=== PATIENT | male | born 1980 | race Caucasian/White ===

== ENCOUNTER 2017-01-31 02:44 | Emergency (ER) | payer MEDICAID ==
[2017-01-31] MEDS ORDERED: NORMAL SALINE 1000 ML 1,000 ML IV ONE (05:32)
[2017-01-31] MEDS ORDERED: ONDANSETRON HCL INJ/PF 4 MG/2 ML SDV IV ONE (05:32)
[2017-01-31] MEDS ORDERED: MECLIZINE HCL 25 MG TABLET PO ONE (05:33)
--- NOTE | 2017-01-31 05:35 | ER Document Report ---
ED Dizziness/Weakness - General Chief Complaint: Dizziness Stated Complaint: VOMMITING Time Seen by Provider: 01/31/17 05:19 Mode of Arrival: Medic Information source: Patient Notes: Patient states he was playing video games with his when around midnight he developed a dizzy sensation that he describes as the room spinning. Patient states that he did become nauseous and vomited. All the abdominal tenderness after the vomiting that seems to be better at this time. Patient denies any headache symptoms. Patient states that he does have a possible history of anxiety. TRAVEL OUTSIDE OF THE [place] IN LAST 30 DAYS: No - HPI Patient complains to provider of: Vertigo Onset: This evening Onset/Duration: Sudden Pain Level: Denies Associated symptoms: Vertigo, Vomiting. denies: Diarrhea, Headache Baseline gait: Walks w/o assistance - Related Data Allergies/Adverse Reactions: amoxicillin [From Augmentin] Allergy (Verified 01/31/17 02:57) clavulanic acid [From Augmentin] Allergy (Verified 01/31/17 02:57) Past Medical History - General Information source: Patient - Social History Smoking Status: Former Smoker Chew tobacco use (# tins/day): No Frequency of alcohol use: None Drug Abuse: None Occupation: Self-employed Lives with: Spouse/Significant other Family History: Reviewed & Not Pertinent Patient has suicidal ideation: No Patient has homicidal ideation: No Renal/ Medical History: Denies: Hx Peritoneal Dialysis Psychiatric Medical History: Reports: Hx Anxiety Past Surgical History: Reports: Hx Herniorrhaphy, Hx Orthopedic Surgery Review of Systems - Review of Systems Constitutional: No symptoms reported EENT: Nose congestion. denies: Ear pain Cardiovascular: Dizziness. denies: Chest pain Respiratory: No symptoms reported. denies: Cough, Short of breath Gastrointestinal: Abdominal pain - Initially, now gone, Vomiting Genitourinary: No symptoms reported Male Genitourinary: No symptoms reported Musculoskeletal: No symptoms reported Skin: No symptoms reported Hematologic/Lymphatic: No symptoms reported Neurological/Psychological: No symptoms reported. denies: Lost consciousness, Headaches Physical Exam - Vital signs Vitals: Temp Pulse Resp BP Pulse Ox 97.4 F 79 20 116/89 H 97 01/31/17 02:56 01/31/17 02:56 01/31/17 02:56 01/31/17 02:56 01/31/17 02:56 - General General appearance: Appears well, Alert In distress: None - HEENT Head: Normocephalic, Atraumatic Eyes: Normal Conjunctiva: Normal Extraocular movements intact: Yes Eyelashes: Normal Pupils: PERRL Ears: Normal External canal: Normal Tympanic membrane: Normal Nasal: Clear rhinorrhea Mouth/Lips: Normal Mucous membranes: Normal Pharynx: Normal Neck: Normal, Supple. No: Lymphadenopathy - Respiratory Respiratory status: No respiratory distress Chest status: Nontender Breath sounds: Normal. No: Rales, Rhonchi, Stridor, Wheezing Chest palpation: Normal - Cardiovascular Rhythm: Regular Heart sounds: S1 appreciated, S2 appreciated Murmur: No - Abdominal Inspection: Normal Distension: No distension Bowel sounds: Normal Tenderness: Nontender Organomegaly: No organomegaly - Back Back: Normal, Nontender. No: CVA tenderness - Extremities General upper extremity: Normal inspection, Normal ROM General lower extremity: Normal inspection, Normal ROM - Neurological Neuro grossly intact: Yes Cognition: Normal [place] Coma Scale Eye Opening: Spontaneous Hemal Coma Scale Verbal: Oriented Hemal Coma Scale Motor: Obeys Commands Hemal Coma Scale Total: 15 - Psychological Associated symptoms: Normal affect, Normal mood - Skin Skin Temperature: Warm Skin Moisture: Dry Skin Color: Normal Course - Re-evaluation Re-evalutation: 01/31/17 07:14 Patient reports that sensation of movement has resolved. Patient denies any nausea at this time. Patient with symptoms consistent with vertigo. Discussed worsening symptoms that patient should return medially for. Patient verbalized understanding and agrees with plan of care. - Vital Signs Vital signs: Temp Pulse Resp BP Pulse Ox 97.4 F 79 18 136/118 H 99 01/31/17 02:56 01/31/17 02:56 01/31/17 06:01 01/31/17 06:31 01/31/17 06:31 - Laboratory Result Diagrams: 01/31/17 05:57 01/31/17 05:57 Laboratory results interpreted by me: Labs- Entire Visit 01/31/17 01/31/17 01/31/17 05:49 05:49 05:57 WBC 7.8 RBC 4.93 Hgb 14.4 Hct 42.9 MCV 87 MCH 29.3 MCHC 33.6 RDW 13.6 Plt Count 237 Seg Neutrophils % 76.1 Lymphocytes % 16.4 Monocytes % 6.7 Eosinophils % 0.6 Basophils % 0.2 Absolute Neutrophils 6.0 Absolute Lymphocytes 1.3 Absolute Monocytes 0.5 Absolute Eosinophils 0.0 Absolute Basophils 0.0 Sodium Potassium Chloride Carbon Dioxide Anion Gap BUN Creatinine Est GFR ( Amer) Est GFR (Non-Af Amer) Glucose Calcium Total Bilirubin Direct Bilirubin Indirect Bilirubin Neonat Total Bilirubin AST ALT Alkaline Phosphatase Total Protein Albumin Urine Color YELLOW Urine Appearance CLEAR Urine pH 6.0 Ur Specific [place] 1.021 Urine Protein NEGATIVE Urine Glucose (UA) NEGATIVE Urine Ketones NEGATIVE Urine Blood NEGATIVE Urine Nitrite NEGATIVE Urine Bilirubin NEGATIVE Urine Urobilinogen NEGATIVE Ur Leukocyte Esterase NEGATIVE Urine WBC (Auto) 1 Urine Mucus (Auto) RARE Urine Ascorbic Acid NEGATIVE Urine Opiates Screen NEGATIVE Urine Methadone Screen NEGATIVE Ur Barbiturates Screen NEGATIVE Ur Phencyclidine Scrn NEGATIVE Ur Amphetamines Screen NEGATIVE U Benzodiazepines Scrn NEGATIVE Urine Cocaine Screen NEGATIVE U Marijuana (THC) Screen NEGATIVE 01/31/17 05:57 WBC RBC Hgb Hct MCV MCH MCHC RDW Plt Count Seg Neutrophils % Lymphocytes % Monocytes % Eosinophils % Basophils % Absolute Neutrophils Absolute Lymphocytes Absolute Monocytes Absolute Eosinophils Absolute Basophils Sodium 141.8 Potassium 4.6 Chloride 103 Carbon Dioxide 30 Anion Gap 9 BUN 13 Creatinine 0.79 Est GFR ( Amer) > 60 Est GFR (Non-Af Amer) > 60 Glucose 107 Calcium 9.5 Total Bilirubin 0.5 Direct Bilirubin 0.3 Indirect Bilirubin Not Reportable Neonat Total Bilirubin Not Reportable AST 26 ALT 52 Alkaline Phosphatase 71 Total Protein 6.7 Albumin 4.2 Urine Color Urine Appearance Urine pH Ur Specific [place] Urine Protein Urine Glucose (UA) Urine Ketones Urine Blood Urine Nitrite Urine Bilirubin Urine Urobilinogen Ur Leukocyte Esterase Urine WBC (Auto) Urine Mucus (Auto) Urine Ascorbic Acid Urine Opiates Screen Urine Methadone Screen Ur Barbiturates Screen Ur Phencyclidine Scrn Ur Amphetamines Screen U Benzodiazepines Scrn Urine Cocaine Screen U Marijuana (THC) Screen - EKG Interpretation by Mt EKG shows normal: Sinus rhythm Rate: Normal Discharge - Discharge Clinical Impression: Vertigo Nausea & vomiting Qualifiers: Vomiting type: unspecified Vomiting Intractability: unspecified Qualified Code( s): R11.2 - Nausea with vomiting, unspecified Condition: Stable Disposition: HOME, SELF-CARE Instructions: Intravenous (IV) Fluids ([facility]), Vertigo ([facility]), Meclizine ([facility]), Antinausea Medication ([facility]) Additional Instructions: Return immediately for any new or worsening symptoms Followup with your primary care provider, call tomorrow to make a followup appointment Prescriptions: Meclizine HCl [Antivert 25 mg Tablet] 25 mg PO ASDIR PRN #20 tablet PRN Reason: Ondansetron HCl [Zofran 4 mg Tablet] 1 - 2 tab PO Q6 PRN #15 tablet PRN Reason: Referrals: [facility] [Provider Group] - Follow up tomorrow
[2017-01-31 06:10] LABS: APPEARANCE,URINE CLEAR; BILIRUBIN,URINE NEGATIVE (NEGATIVE); GLUCOSE, URINE NEGATIVE (NEGATIVE); KETONES,URINE NEGATIVE (NEGATIVE); LEUKOCYTE ESTERASE,URINE NEGATIVE (NEGATIVE); NITRITE,URINE NEGATIVE (NEGATIVE); PROTEIN,URINE NEGATIVE (NEGATIVE); URINE SPECIFIC GRAVITY 1.021; UROBILINOGEN,URINE NEGATIVE mg/dL (<2.0)
[2017-01-31 06:14] LABS: ABSOLUTE LYMPHOCYTES (AUTO) 1.3 10^3/uL (0.5-4.7); ABSOLUTE MONOCYTES (AUTO) 0.5 10^3/uL (0.1-1.4); BASOPHILS % (AUTO) 0.2 % (0-2); EOSINOPHILS % (AUTO) 0.6 % (0-6); HEMATOCRIT 42.9 % (37.9-51.0); HEMOGLOBIN 14.4 g/dL (13.5-17.0); HGB HCT DIFFERENCE 0.3; LYMPHOCYTES % (AUTO) 16.4 % (13-45); MEAN CORPUSCULAR HEMOGLOBIN 29.3 pg (27.0-33.4); MEAN CORPUSCULAR HGB CONC 33.6 g/dL (32.0-36.0); MEAN CORPUSCULAR VOLUME 87 fl (80-97); MONOCYTES % (AUTO) 6.7 % (3-13); RED BLOOD COUNT 4.93 10^6/uL (4.35-5.55); RED CELL DISTRIBUTION WIDTH 13.6 % (11.5-14.0); SEGMENTED NEUTROPHILS % (AUTO) 76.1 % (42-78); WHITE BLOOD COUNT 7.8 10^3/uL (4.0-10.5)
[2017-01-31 06:23] LABS: URINE BARBITURATES SCREEN NEGATIVE; URINE METHADONE SCREEN NEGATIVE; URINE OPIATES LOW NEGATIVE; URINE PHENCYCLIDINE SCREEN NEGATIVE
[2017-01-31 06:28] LABS: ALANINE AMINOTRANSFERASE 52 U/L (21-72); ALBUMIN 4.2 g/dL (3.5-5.0); ALKALINE PHOSPHATASE 71 U/L (38-126); ANION GAP 9 (5-19); ASPARTATE AMINO TRANSFERASE 26 U/L (17-59); BILIRUBIN,DIRECT 0.3 mg/dL (0.0-0.4); BILIRUBIN,TOTAL 0.5 mg/dL (0.2-1.3); BLOOD UREA NITROGEN 13 mg/dL (7-20); CALCIUM 9.5 mg/dL (8.4-10.2); CARBON DIOXIDE 30 mmol/L (22-30); CHLORIDE 103 mmol/L (98-107); CREATININE RESULT 0.79 mg/dL (0.52-1.25); GLUCOSE 107 mg/dL (75-110); POTASSIUM 4.6 mmol/L (3.6-5.0); SODIUM 141.8 mmol/L (137-145); TOTAL PROTEIN 6.7 g/dL (6.3-8.2)
[2017-01-31 08:35] VITALS: BP 123/76
--- NOTE | 2017-01-31 15:21 | EKG REPORT ---
SEVERITY:- NORMAL ECG - SINUS RHYTHM : Confirmed by: Martine Jaramillo 31-Jan-2017 15:19:50
== END 2017-01-31 08:19 | disposition home or self-care (01) ==
LOC: ER 02:44
DX: R42 Dizziness and giddiness (principal); R11.2 Nausea with vomiting, unspecified; Z88.0 Allergy status to penicillin
CPT/HCPCS: 93005; 99284; 96361; 96374; 36415; 85025; 80053; 81001; 80307; 93010; J2405; J7030

== ENCOUNTER 2017-10-26 17:59 | Emergency (ER) | payer MEDICAID ==
[2017-10-26 18:06] VITALS: BP 128/92
--- NOTE | 2017-10-26 18:55 | ER Document Report ---
HPI - HPI Patient complains to provider of: cat scratches Onset: Yesterday - 6 PM Onset/Duration: Sudden Pain Level: 4 Context: 37-year-old male was trying to mixing picker tender a stray cat by the nape of the neck twice yesterday evening to get the cat captured by [facility]. The animal finally ran off in the [place] and he has not contacted [facility] but the mounted police that was at the house did call animal [employer]. I will have him complete an animal bite form and I have talked to him about what procedure should be done Associated Symptoms: None Exacerbated by: Denies Relieved by: Denies Similar symptoms previously: No Recently seen / treated by doctor: No - ROS ROS below otherwise negative: Yes Systems Reviewed and Negative: Yes All other systems reviewed and negative Past Medical History - General Information source: Patient - Social History Smoking Status: Current Every Day Smoker Frequency of alcohol use: None Drug Abuse: None Lives with: Family Family History: Reviewed & Not Pertinent Renal/ Medical History: Denies: Hx Peritoneal Dialysis Psychiatric Medical History: Reports: Hx Anxiety Past Surgical History: Reports: Hx Herniorrhaphy, Hx Orthopedic Surgery Vertical Provider Document - CONSTITUTIONAL Agree With Documented VS: Yes - INFECTION CONTROL TRAVEL OUTSIDE OF THE [place] IN LAST 30 DAYS: No - NECK Neck: Supple - RESPIRATORY Respiratory: Breath Sounds Normal - MUSCULOSKELETAL/EXTREMETIES Musculoskeletal/Extremeties: CRICKET HERRERA. negative: Tender - DERM Notes: Superficial scratches to the right posterior calf, no inflammation, crusting, or bleeding. Superficial scratch to the right distal volar forearm without bleeding or crusting, no inflammation. Tendinitis or adenopathy of the leg or the arm. Course - Re-evaluation Re-evalutation: 10/26/17 19:04 I have instructed the patient to contact [facility] that they have 10 days to find the cat. If they are not unable to find the cat he needs to return to the emergency room for rabies vaccinations. I explained to him that this is low risk for any rabies as confirmed by my consulting physician at this time 10/26/17 19:06 - Vital Signs Vital signs: Temp Pulse Resp BP Pulse Ox 98.2 F 75 16 128/92 H 100 10/26/17 18:05 10/26/17 18:05 10/26/17 18:05 10/26/17 18:05 10/26/17 18:05 Discharge - Discharge Clinical Impression: Cat scratch Condition: Good Disposition: HOME, SELF-CARE Instructions: Abrasions ([facility]) Additional Instructions: You are to keep in contact with animal control. Animal control will try to capture the animal You have 10 days to find the cat and see if the cat gets sick. Your cat scratches are not infected return to ER if cat is NOT FOUND within the 10 days
[2017-10-26] MEDS ORDERED: DIPH/PERTUSS(ACELL)/TETANUS VAC/PF 0.5 ML SYR (>=10YO) IM ONE (19:07)
== END 2017-10-26 19:37 | disposition home or self-care (01) ==
LOC: ER 17:59
DX: S80.811A Abrasion, right lower leg, initial encounter (principal); W55.03XA Scratched by cat, initial encounter; Y92.009 Unspecified place in unspecified non-institutional (private) residence as the place of occurrence of the external cause; Z23 Encounter for immunization; F17.200 Nicotine dependence, unspecified, uncomplicated
CPT/HCPCS: 90471; 90715; 99283

== ENCOUNTER 2018-04-11 17:31 | Emergency (ER) | payer MEDICAID ==
--- NOTE | 2018-04-11 19:05 | ER Document Report ---
ED Medical Screen (RME) - General Chief Complaint: Laceration Stated Complaint: FINGER LACERATION Time Seen by Provider: 04/11/18 19:04 Notes: Left middle finger laceration TRAVEL OUTSIDE OF THE [place] IN LAST 30 DAYS: No - Related Data Allergies/Adverse Reactions: amoxicillin [From Augmentin] Allergy (Verified 04/11/18 17:38) clavulanic acid [From Augmentin] Allergy (Verified 04/11/18 17:38) Past Medical History - Social History Chew tobacco use (# tins/day): No Frequency of alcohol use: Social Drug Abuse: None Renal/ Medical History: Denies: Hx Peritoneal Dialysis Psychiatric Medical History: Reports: Hx Anxiety Past Surgical History: Reports: Hx Abdominal Surgery - hernia repair, Hx Herniorrhaphy, Hx Orthopedic Surgery Physical Exam - Vital signs Vitals: Temp Pulse Resp BP Pulse Ox 98.5 F 92 14 121/79 98 04/11/18 18:24 04/11/18 18:24 04/11/18 18:24 04/11/18 18:24 04/11/18 18:24 Course - Vital Signs Vital signs: Temp Pulse Resp BP Pulse Ox 98.5 F 92 14 121/79 98 04/11/18 18:24 04/11/18 18:24 04/11/18 18:24 04/11/18 18:24 04/11/18 18:24
[2018-04-11] MEDS ORDERED: LIDOCAINE 4%/TETRACAINE 0.5%/EPI 0.18% 5 ML TOPICAL SOLN TOP ONE (19:17)
[2018-04-11] MEDS ORDERED: LIDOCAINE 1% INJ-PF (10 MG/ML) 30 ML SDV INJ ONE (19:17)
--- NOTE | 2018-04-11 19:25 | ER Document Report ---
ED Wound - General TRAVEL OUTSIDE OF THE [place] IN LAST 30 DAYS: No - General Chief Complaint: Laceration Stated Complaint: FINGER LACERATION Time Seen by Provider: 04/11/18 19:04 Notes: Patient is a 37-year-old male that comes to the emergency department for chief complaint of laceration to the top of his left index finger with a saw accidentally just prior to arrival. He reports heavy bleeding. He came by EMS. He denies any other injuries. His tetanus is up-to-date within 3 months. He denies blood thinner, he denies history of diabetes. ([place]) - Related Data Allergies/Adverse Reactions: amoxicillin [From Augmentin] Allergy (Verified 04/11/18 17:38) clavulanic acid [From Augmentin] Allergy (Verified 04/11/18 17:38) Past Medical History - General Information source: Patient - Social History Smoking Status: Never Smoker Chew tobacco use (# tins/day): No Frequency of alcohol use: Social Drug Abuse: None Lives with: Family Family History: Reviewed & Not Pertinent Patient has suicidal ideation: No Patient has homicidal ideation: No Renal/ Medical History: Denies: Hx Peritoneal Dialysis Psychiatric Medical History: Reports: Hx Anxiety Past Surgical History: Reports: Hx Abdominal Surgery - hernia repair, Hx Herniorrhaphy, Hx Orthopedic Surgery - Immunizations Immunizations up to date: Yes Hx Diphtheria, Pertussis, Tetanus Vaccination: Yes Review of Systems - Review of Systems Constitutional: No symptoms reported EENT: No symptoms reported Cardiovascular: No symptoms reported Respiratory: No symptoms reported Gastrointestinal: No symptoms reported Genitourinary: No symptoms reported Male Genitourinary: No symptoms reported Musculoskeletal: See HPI Skin: See HPI Hematologic/Lymphatic: No symptoms reported Neurological/Psychological: No symptoms reported Physical Exam - Vital signs Vitals: Temp Pulse Resp BP Pulse Ox 98.5 F 92 14 121/79 98 04/11/18 18:24 04/11/18 18:24 04/11/18 18:24 04/11/18 18:24 04/11/18 18:24 - Notes Notes: GENERAL: Alert, interacts well. HEAD: Normocephalic, atraumatic. EYES: Pupils equal, round, and reactive to light. Extraocular movements intact. ENT: Oral mucosa moist, tongue midline. Oropharynx unremarkable. Airway patent. Nares patent, no nasal septal hematoma, TM's intact. NECK: Full range of motion. Supple. Trachea midline. LUNGS: Clear to auscultation bilaterally, no wheezes, rales, or rhonchi. No respiratory distress. HEART: Regular rate and rhythm. No murmur ABDOMEN: Soft, non-tender. Non-distended. Bowel sounds present in all 4 quadrants. GENITOURINARY: Deferred EXTREMITIES: Horizontal partial-thickness heavily bleeding laceration between the PIP and DIP of the left index finger. Excellent strength in pressing against resistance for flexion and extension. Normal capillary refill and sensation. Normal range of motion. Remaining hand, wrist, forearm exam is normal. BACK: no cervical, thoracic, lumbar midline tenderness. No saddle anesthesia, normal distal neurovascular exam. NEUROLOGICAL: Alert and oriented x3. Normal speech. [cranial nerves II through XII grossly intact]. PSYCH: Anxious SKIN: Warm, dry, normal turgor. No rashes or lesions noted. ([place]) Course - Re-evaluation Re-evalutation: X-ray with no acute findings. Laceration is partial-thickness, patient has full range of motion, normal strength, and with exploration there is no evidence of deep wound, injury to the tendon, injury to large vessel or nerve. I offered patient pain medication, he declined. 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 He then requested that I complete the repair without any additional intervention. I was able to complete 3 sutures. Reasonably good closure, somewhat limited by patient's ability to tolerate. Because of the saw laceration to the finger I recommended prophylactic coverage with antibiotics, patient declined this as well. Discussed wound care, follow- up, and return precautions. Patient states understanding and agreement. ([place]) - Vital Signs Vital signs: Temp Pulse Resp BP Pulse Ox 98.5 F 86 18 124/81 98 04/11/18 18:24 04/11/18 21:05 04/11/18 21:05 04/11/18 21:05 04/11/18 21:05 Procedures - Laceration/Wound Repair left index finger Wound length (cm): 1 Wound's Depth, Shape: Irregular Laceration pre-procedure: Sterile PPE donned, Sterile drapes applied, Shur-Clens applied Anesthetic type: Other - l.e.t. Wound explored: Clean, No foreign body removed Irrigated w/ Saline (mLs): 50 Wound Repaired With: Sutures Suture Size/Type: 5:0, Nylon Number of Sutures: 3 Layer Closure?: No Post-procedure wound care: Sterile dressing applied Post-procedure NV exam normal: Yes Complications: No Discharge - Discharge Clinical Impression: Laceration of left index finger Qualifiers: Encounter type: initial encounter Damage to nail status: without damage Foreign body presence: without foreign body Qualified Code(s): S61.211A - Laceration without foreign body of left index finger without damage to nail, initial encounter Condition: Stable Disposition: HOME, SELF-CARE Additional Instructions: The x-ray shows no concerning findings. The sutures need to come out in about 7 days at a medical facility. Keep clean, clean with soap and water, dab dry, avoid soaking. You can apply thin film of topical antibiotic. Return immediately for any signs of infection including severe pain, swelling, developing or spreading redness, discolored drainage, fever/chills, or any other concerning symptoms. Cosign for MLP Consult
--- NOTE | 2018-04-11 20:06 | RADIOLOGY REPORT (SQ) ---
EXAM DESCRIPTION: FINGER LEFT COMPLETED DATE/TIME: 04/11/2018 7:54 pm REASON FOR STUDY: finger laceration with saw COMPARISON: None. NUMBER OF VIEWS: Three views. TECHNIQUE: AP, lateral, and oblique images acquired of the left second finger. LIMITATIONS: None. FINDINGS: MINERALIZATION: Normal. BONES: No acute fracture or dislocation. No worrisome bone lesions. SOFT TISSUES: No soft tissue swelling. No foreign body. OTHER: No other significant finding. IMPRESSION: NO RADIOGRAPHIC EVIDENCE OF ACUTE INJURY. TECHNICAL DOCUMENTATION: JOB ID: [id number] [employer]- All Rights Reserved Reading location - IP/workstation name: [email or web address]
[2018-04-11 21:07] VITALS: BP 124/81
== END 2018-04-11 21:05 | disposition home or self-care (01) ==
LOC: ER 17:31
DX: S61.211A Laceration without foreign body of left index finger without damage to nail, initial encounter (principal); W29.8XXA Contact with other powered hand tools and household machinery, initial encounter; R23.1 Pallor; R61 Generalized hyperhidrosis; Z88.0 Allergy status to penicillin
CPT/HCPCS: 99283; 73140; 12001; J3490

== ENCOUNTER 2018-07-17 22:10 | Emergency (ER) | payer MEDICAID ==
[2018-07-18] MEDS ORDERED: LOPERAMIDE HCL 2 MG CAPSULE PO ONE (01:50)
[2018-07-18] MEDS ORDERED: NORMAL SALINE 1000 ML 1,000 ML IV ONE (01:50)
[2018-07-18] MEDS ORDERED: ONDANSETRON HCL INJ/PF 4 MG/2 ML SDV IV ONE (01:50)
[2018-07-18] MEDS ORDERED: DICYCLOMINE HCL INJ 20 MG/2 ML AMPULE IM ONE (01:50)
[2018-07-18] MEDS ORDERED: FAMOTIDINE INJ/PF 20 MG/2 ML SDV IV ONE (01:50)
--- NOTE | 2018-07-18 01:54 | ER Document Report ---
ED General - General Chief Complaint: Nausea/Vomiting/Diarrhea Stated Complaint: VOMITING Time Seen by Provider: 07/18/18 01:42 Mode of Arrival: Ambulatory Information source: Patient, Relative, [facility] Records Notes: 38-year-old male presents with complaint of nausea, vomiting, diarrhea and abdom inal pain that started this morning. Patient states that he has had numerous episodes of watery diarrhea. He states that he has had 3 episodes of vomiting and has not been able to keep down any food or liquid. Patient has generalized abdominal pain that he describes as cramping and worse right before having a bowel movement. Patient has had sick contacts with family members with similar symptoms of diarrhea and vomiting. Patient did try to take Tums without relief. He denies any black or bloody stools. TRAVEL OUTSIDE OF THE [place] IN LAST 30 DAYS: No - HPI Onset: This morning Onset/Duration: Sudden Quality of pain: Cramping Severity: Moderate Associated symptoms: Chills, Diarrhea, Nausea, Vomiting, Other - Abdominal pain. denies: Fever Exacerbated by: Food Relieved by: Denies Similar symptoms previously: No Recently seen / treated by doctor: No - Related Data Allergies/Adverse Reactions: amoxicillin [From Augmentin] Allergy (Verified 07/17/18 22:24) clavulanic acid [From Augmentin] Allergy (Verified 07/17/18 22:24) Past Medical History - General Information source: Patient, Relative, [facility] Records - Social History Smoking Status: Former Smoker Frequency of alcohol use: None Drug Abuse: None Lives with: Family Family History: Reviewed & Not Pertinent Patient has suicidal ideation: No Patient has homicidal ideation: No - Medical History Medical History: Negative Renal/ Medical History: Denies: Hx Peritoneal Dialysis Psychiatric Medical History: Reports: Hx Anxiety Past Surgical History: Reports: Hx Abdominal Surgery - hernia repair, Hx Herniorrhaphy, Hx Orthopedic Surgery - Immunizations Immunizations up to date: Yes Hx Diphtheria, Pertussis, Tetanus Vaccination: Yes Review of Systems - Review of Systems Notes: REVIEW OF SYSTEMS: CONSTITUTIONAL : Denies fever, chills, or sweats. Denies recent illness. Denies weight loss, recent hospitalizations. EENT: Denies visual changes, eye pain. Denies sore throat, oral lesions, difficulty swallowing. CARDIOVASCULAR: Denies chest pain. Denies palpitations. Denies lower extremity edema. RESPIRATORY: Denies cough. Denies shortness of breath, wheezing. GASTROINTESTINAL: Denies abdominal distention. Denies blood in vomitus, stools, or per rectum. Denies black, tarry stools. Denies constipation. GENITOURINARY: Denies difficulty urinating, painful urination, frequency, blood in urine, testicular pain or penile discharge. MUSCULOSKELETAL: Denies back or neck pain or stiffness. Denies joint pain or swelling. SKIN: Denies rash, lesions or sores. HEMATOLOGIC : Denies easy bruising or bleeding. LYMPHATIC: Denies swollen glands. NEUROLOGICAL: Denies confusion or altered mental status. Denies loss of consciousness. Denies dizziness or lightheadedness. Denies headache. Denies weakness or paralysis. Denies problems difficulty with ambulation, slurred speech. Denies sensory loss, numbness, or tingling. Denies seizures. PSYCHIATRIC: Denies anxiety or stress. Denies depression, suicidal ideation, Physical Exam - Vital signs Vitals: Temp Pulse Resp BP Pulse Ox 98.6 F 82 16 119/82 100 07/18/18 00:08 07/18/18 00:08 07/18/18 00:08 07/18/18 00:08 07/18/18 00:08 - Notes Notes: PHYSICAL EXAMINATION: GENERAL: Well-appearing, well-nourished and in no acute distress. HEAD: Atraumatic, normocephalic. EYES: Pupils equal round and reactive to light, extraocular movements intact, sclera anicteric, conjunctiva are normal. ENT: Nares patent, oropharynx clear without exudates. Moist mucous membranes. NECK: Normal range of motion, supple without lymphadenopathy LUNGS: Breath sounds clear to auscultation bilaterally and equal. No wheezes rales or rhonchi. HEART: Regular rate and rhythm without murmurs ABDOMEN: Epigastric abdominal tenderness with palpation. No guarding, no rebound. No masses appreciated. Musculoskeletal: Normal range of motion, no pitting or edema. No cyanosis. NEUROLOGICAL: Cranial nerves grossly intact. Normal speech, normal gait. Normal sensory, motor exams PSYCH: Normal mood, normal affect. SKIN: Warm, Dry, normal turgor, no rashes or lesions noted. Course - Re-evaluation Re-evalutation: Laboratory 07/18/18 07/18/18 07/18/18 01:40 01:40 01:40 WBC 8.3 RBC 5.37 Hgb 16.3 Hct 47.0 MCV 88 MCH 30.3 MCHC 34.6 RDW 13.9 Plt Count 289 Seg Neutrophils % 82.7 H Lymphocytes % 10.1 L Monocytes % 6.4 Eosinophils % 0.6 Basophils % 0.2 Absolute Neutrophils 6.9 Absolute Lymphocytes 0.8 Absolute Monocytes 0.5 Absolute Eosinophils 0.1 Absolute Basophils 0.0 Sodium 139.1 Potassium 4.1 Chloride 103 Carbon Dioxide 28 Anion Gap 8 BUN 15 Creatinine 0.90 Est GFR ( Amer) > 60 Est GFR (Non-Af Amer) > 60 Glucose 103 Calcium 9.7 Total Bilirubin 1.1 Direct Bilirubin 0.3 Neonat Total Bilirubin Not Reportable Neonat Direct Bilirubin Not Reportable Neonat Indirect Bili Not Reportable AST 30 ALT 24 Alkaline Phosphatase 69 Total Protein 7.8 Albumin 4.4 Lipase 71.5 Urine Color Urine Appearance Urine pH Ur Specific [place] Urine Protein Urine Glucose (UA) Urine Ketones Urine Blood Urine Nitrite Urine Bilirubin Urine Urobilinogen Ur Leukocyte Esterase Urine WBC (Auto) Urine RBC (Auto) U Hyaline Cast (Auto) Urine Mucus (Auto) Urine Ascorbic Acid 07/18/18 02:53 WBC RBC Hgb Hct MCV MCH MCHC RDW Plt Count Seg Neutrophils % Lymphocytes % Monocytes % Eosinophils % Basophils % Absolute Neutrophils Absolute Lymphocytes Absolute Monocytes Absolute Eosinophils Absolute Basophils Sodium Potassium Chloride Carbon Dioxide Anion Gap BUN Creatinine Est GFR ( Amer) Est GFR (Non-Af Amer) Glucose Calcium Total Bilirubin Direct Bilirubin Neonat Total Bilirubin Neonat Direct Bilirubin Neonat Indirect Bili AST ALT Alkaline Phosphatase Total Protein Albumin Lipase Urine Color BEL Urine Appearance SLIGHTLY-CLOUDY Urine pH 5.0 Ur Specific [place] 1.027 Urine Protein NEGATIVE Urine Glucose (UA) NEGATIVE Urine Ketones 20 H Urine Blood NEGATIVE Urine Nitrite NEGATIVE Urine Bilirubin NEGATIVE Urine Urobilinogen NEGATIVE Ur Leukocyte Esterase NEGATIVE Urine WBC (Auto) 1 Urine RBC (Auto) 1 U Hyaline Cast (Auto) 9 Urine Mucus (Auto) MANY Urine Ascorbic Acid NEGATIVE Temp Pulse Resp BP Pulse Ox 98.6 F 82 16 119/82 98 07/18/18 00:08 07/18/18 00:08 07/18/18 00:08 07/18/18 00:08 07/18/18 03:00 38-year-old male presents with complaint of nausea, vomiting and diarrhea that started 1 day prior to arrival. Vital signs reviewed and within normal limits. Patient appears uncomfortable but not toxic or dehydrated. CBC, CMP, lipase and urinalysis are normal limits. Patient does report improvement of his nausea and abdominal cramping after receiving IV fluids, Pepcid, Zofran and Bentyl. Presentation of an overall well-appearing patient in no acute distress with complaints of nausea, vomiting, diarrhea. This is consistent with likely viral gastroenteritis. Patient has no abdominal tenderness on exam and specifically no tenderness in the RLQ, LLQ, RUQ. Overall well hydrated on exam. Able to tolerate oral intake here in the emergency department. Low clinical suspicion for any acute life-threatening etiology based on exam and history including acute cholecystitis, SBO, appendicitis, nephrolithiasis, or pylonephritis. CMP without evidence of acute hepatitis or significant dehydration. Will plan for discharge at this time with return precautions and followup recommendations. 07/18/18 03:21 Dictation on this chart was performed using voice recognition software and may result in unintended grammatical, spelling, syntax or errors. - Vital Signs Vital signs: Temp Pulse Resp BP Pulse Ox 98.6 F 82 16 119/82 98 07/18/18 00:08 07/18/18 00:08 07/18/18 00:08 07/18/18 00:08 07/18/18 03:00 - Laboratory Result Diagrams: 07/18/18 01:40 07/18/18 01:40 Laboratory results interpreted by me: 07/18/18 07/18/18 01:40 02:53 Seg Neutrophils % 82.7 H Lymphocytes % 10.1 L Urine Ketones 20 H Discharge - Discharge Clinical Impression: Nausea vomiting and diarrhea, Gastroenteritis, Abdominal cramping Condition: Good Disposition: HOME, SELF-CARE Instructions: Antinausea Medication ([facility]), Clear Liquid Diet ([facility]), Diarrhea, Nonspecific ([facility]), Gastroenteritis (adult) ([facility]), Vomiting ([facility]) Additional Instructions: Your symptoms are likely due to a viral illness and should resolve in the next several days. You can take [id number] loperamide also known as Imodium as needed for diarrhea per box instructions. Continue to stay hydrated with plenty of solution such as Gatorade or Pedialyte. You are being prescribed Zofran to take as needed for nausea and vomiting. Please return if you develop severe abdominal pain, pass out, become unable to tolerate any oral fluids for 12 more hours, or any other symptoms that are concerning to you. Prescriptions: Famotidine [Pepcid 40 mg Tablet] 40 mg PO QHS #7 tablet Ondansetron [Zofran Odt 4 mg Tablet] 1 - 2 tab PO Q4H PRN #15 tab.rapdis PRN Reason: For Nausea/Vomiting Forms: Return to Work
[2018-07-18 01:55] LABS: ABSOLUTE EOSINOPHILS # (AUTO) 0.1 10^3/uL (0.0-0.6); ABSOLUTE LYMPHOCYTES (AUTO) 0.8 10^3/uL (0.5-4.7); ABSOLUTE MONOCYTES (AUTO) 0.5 10^3/uL (0.1-1.4); ABSOLUTE NEUT (AUTO) 6.9 10^3/uL (1.7-8.2); BASOPHILS % (AUTO) 0.2 % (0-2); EOSINOPHILS % (AUTO) 0.6 % (0-6); HEMOGLOBIN 16.3 g/dL (13.5-17.0); LYMPHOCYTES % (AUTO) 10.1 % (13-45); MEAN CORPUSCULAR HEMOGLOBIN 30.3 pg (27.0-33.4); MEAN CORPUSCULAR HGB CONC 34.6 g/dL (32.0-36.0); MEAN CORPUSCULAR VOLUME 88 fl (80-97); MONOCYTES % (AUTO) 6.4 % (3-13); PLATELET COUNT 289 10^3/uL (150-450); RED BLOOD COUNT 5.37 10^6/uL (4.35-5.55); RED CELL DISTRIBUTION WIDTH 13.9 % (11.5-14.0); SEGMENTED NEUTROPHILS % (AUTO) 82.7 % (42-78); TOTAL CELLS COUNTED % (AUTO) 100 %; WHITE BLOOD COUNT 8.3 10^3/uL (4.0-10.5)
[2018-07-18 02:11] LABS: ALANINE AMINOTRANSFERASE 24 U/L (21-72); ALBUMIN 4.4 g/dL (3.5-5.0); ALKALINE PHOSPHATASE 69 U/L (38-126); ANION GAP 8 (5-19); ASPARTATE AMINO TRANSFERASE 30 U/L (17-59); BILIRUBIN,DIRECT 0.3 mg/dL (0.0-0.4); BILIRUBIN,TOTAL 1.1 mg/dL (0.2-1.3); BLOOD UREA NITROGEN 15 mg/dL (7-20); CALCIUM 9.7 mg/dL (8.4-10.2); CARBON DIOXIDE 28 mmol/L (22-30); CHLORIDE 103 mmol/L (98-107); GLUCOSE 103 mg/dL (75-110); POTASSIUM 4.1 mmol/L (3.6-5.0); SODIUM 139.1 mmol/L (137-145); TOTAL PROTEIN 7.8 g/dL (6.3-8.2)
[2018-07-18 03:08] LABS: APPEARANCE,URINE SLIGHTLY-CLOUDY; BILIRUBIN,URINE NEGATIVE (NEGATIVE); COLOR,URINE AMBER; GLUCOSE, URINE NEGATIVE (NEGATIVE); KETONES,URINE 20 mg/dL (NEGATIVE); LEUKOCYTE ESTERASE,URINE NEGATIVE (NEGATIVE); NITRITE,URINE NEGATIVE (NEGATIVE); PROTEIN,URINE NEGATIVE (NEGATIVE); URINE SPECIFIC GRAVITY 1.027; UROBILINOGEN,URINE NEGATIVE mg/dL (<2.0)
[2018-07-18] MEDS ORDERED: ONDANSETRON ODT 4 MG TAB (6 TAB/ER DISP) PO PRN (03:23)
[2018-07-18 04:49] VITALS: BP 109/68
== END 2018-07-18 04:51 | disposition home or self-care (01) ==
LOC: ER 22:10
DX: K52.9 Noninfective gastroenteritis and colitis, unspecified (principal); R11.2 Nausea with vomiting, unspecified; R10.84 Generalized abdominal pain; R68.83 Chills (without fever); Z88.0 Allergy status to penicillin; Z87.891 Personal history of nicotine dependence
CPT/HCPCS: 99284; 96372; 96361; 96374; 96375; 36415; 83690; 85025; 80053; 81001; J0500; J3490; J2405; J7030; S0028

== ENCOUNTER 2018-08-14 16:21 | Emergency (ER) | payer MEDICAID ==
[2018-08-14] MEDS ORDERED: ONDANSETRON 4 MG TAB.RAPDIS PO ONE (17:21)
[2018-08-14] MEDS ORDERED: ACETAMINOPHEN 325 MG TABLET PO ONE (17:21)
--- NOTE | 2018-08-14 17:26 | ER Document Report ---
ED Medical Screen (RME) - General Chief Complaint: Leg Pain Stated Complaint: LEG PAIN Time Seen by Provider: 08/14/18 17:21 Mode of Arrival: Ambulatory Information source: Patient Notes: 38-year-old male presents to ED for complaint of pain bruising swelling to the left knee and ankle. He states he does not remember any injury. To the knee or ankle but he has had swelling and bruising to the knee and ankle for several days. He states he was told he needed to come in and get evaluated for a blood clot. He states he has been very anxious and concerned since then. Patient states he is having pain to the knee and ankle and he did have pain to the back of the left calf a couple weeks ago but that resolved. Patient states he is mildly nauseated at this time. He will be treated with Tylenol, Zofran, Doppler and x-rays for the ankle and knee completed. I have greeted and performed a rapid initial assessment of this patient. A comprehensive ED assessment and evaluation of the patient, analysis of test results and completion of medical decision making process will be conducted by an additional ED providers. After performing a Medical Screening Examination, I estimate there is LOW risk for a RETAINED CORNEAL or LID FOREIGN BODY, DEEP SPACE INFECTION (e.g., ORBITAL CELLULITIS OR ABSCESS), ACUTE GLAUCOMA, PENETRATING GLOBE INJURY, RETINAL DETACHMENT, or MENINGITIS thus I consider the discharge disposition reasonable. I have reevaluated this patient multiple times and no significant life threatening changes are noted. Also, there is no evidence or peritonitis, sepsis, or toxicity. The patient and I have discussed the diagnosis and risks, and we agree with discharging home with outpatient follow-up with the understanding that symptoms and presentations can change. We also discussed returning to the Emergency Department immediately if new or worsening symptoms occur. We have discussed the symptoms which are most concerning (e.g., changing or worsening pain, vision changes, neck stiffness or fever) that necessitate immediate return. Silvia TRAVEL OUTSIDE OF THE [place] IN LAST 30 DAYS: No - Related Data Allergies/Adverse Reactions: amoxicillin [From Augmentin] Allergy (Verified 07/17/18 22:24) clavulanic acid [From Augmentin] Allergy (Verified 07/17/18 22:24) Past Medical History - Social History Chew tobacco use (# tins/day): No Drug Abuse: None Renal/ Medical History: Denies: Hx Peritoneal Dialysis Psychiatric Medical History: Reports: Hx Anxiety Past Surgical History: Reports: Hx Abdominal Surgery - hernia repair, Hx Herniorrhaphy, Hx Orthopedic Surgery - Immunizations Immunizations up to date: Yes Hx Diphtheria, Pertussis, Tetanus Vaccination: Yes Physical Exam - Vital signs Vitals: Temp Pulse Resp BP Pulse Ox 99.4 F 85 17 129/92 H 98 08/14/18 16:54 08/14/18 16:54 08/14/18 16:54 08/14/18 16:54 08/14/18 16:54 Course - Vital Signs Vital signs: Temp Pulse Resp BP Pulse Ox 99.4 F 85 17 129/92 H 98 08/14/18 16:54 08/14/18 16:54 08/14/18 16:54 08/14/18 16:54 08/14/18 16:54
--- NOTE | 2018-08-14 17:54 | RADIOLOGY REPORT (SQ) ---
EXAM DESCRIPTION: KNEE LEFT 4 VIEW COMPLETED DATE/TIME: 08/14/2018 5:40 pm REASON FOR STUDY: Pain bruising swelling unknown injury COMPARISON: None. NUMBER OF VIEWS: Four views. TECHNIQUE: AP, lateral, and both oblique radiographic images acquired of the left knee. LIMITATIONS: None. FINDINGS: MINERALIZATION: Normal. BONES: No acute fracture or dislocation. No worrisome bone lesions. JOINT: No effusion. SOFT TISSUES: No soft tissue swelling. No radio-opaque foreign body. OTHER: No other significant finding. IMPRESSION: NEGATIVE STUDY OF THE LEFT KNEE. NO RADIOGRAPHIC EVIDENCE OF ACUTE INJURY. TECHNICAL DOCUMENTATION: JOB ID: [id number] [employer]- All Rights Reserved Reading location - IP/workstation name: [email or web address]
--- NOTE | 2018-08-14 17:55 | RADIOLOGY REPORT (SQ) ---
EXAM DESCRIPTION: ANKLE LEFT COMPLETE COMPLETED DATE/TIME: 08/14/2018 5:40 pm REASON FOR STUDY: Pain bruising swelling unknown injury COMPARISON: None. NUMBER OF VIEWS: Three views. TECHNIQUE: AP, lateral, and oblique radiographic images acquired of the left ankle. LIMITATIONS: None. FINDINGS: MINERALIZATION: Normal. BONES: No acute fracture or dislocation. No worrisome bone lesions. JOINTS: No effusions. SOFT TISSUES: Mild soft tissue swelling laterally. OTHER: No other significant finding. IMPRESSION: Mild soft tissue swelling. No underlying fracture. TECHNICAL DOCUMENTATION: JOB ID: [id number] [employer]- All Rights Reserved Reading location - IP[facility]workstation name: [email or web address]
--- NOTE | 2018-08-14 20:12 | ER Document Report ---
ED General - General Chief Complaint: Leg Pain Stated Complaint: LEG PAIN Time Seen by Provider: 08/14/18 17:21 Mode of Arrival: Ambulatory Information source: Patient, [facility] Records Notes: 38-year-old male with no reported past medical history presents with complaint of left lower extremity bruising, swelling and pain that started several days prior to arrival. Patient denies any known injury and states that he woke with bruising. He states he called EMS earlier today while at [facility] and they expressed concern for a clot. Patient denies previous history of clot. Patient also currently complaining of a lump on his sternum that has been present for approximately 1 year. TRAVEL OUTSIDE OF THE [place] IN LAST 30 DAYS: No - HPI Onset: Other Onset/Duration: Gradual, Persistent Quality of pain: Achy, Throbbing Severity: Mild Associated symptoms: Leg swelling, Nausea. denies: Chest pain, Nonproductive cough, Productive cough, Fever, Headache, Hurts to breath, Shortness of breath Exacerbated by: Movement, Walking Relieved by: Remaining still Similar symptoms previously: No Recently seen / treated by doctor: No - Related Data Allergies/Adverse Reactions: amoxicillin [From Augmentin] Allergy (Verified 07/17/18 22:24) clavulanic acid [From Augmentin] Allergy (Verified 07/17/18 22:24) Past Medical History - General Information source: Patient - Social History Smoking Status: Never Smoker Chew tobacco use (# tins/day): No Frequency of alcohol use: None Drug Abuse: None Lives with: Family Family History: Reviewed & Not Pertinent Patient has suicidal ideation: No Patient has homicidal ideation: No - Medical History Medical History: Negative Renal/ Medical History: Denies: Hx Peritoneal Dialysis Psychiatric Medical History: Reports: Hx Anxiety Past Surgical History: Reports: Hx Abdominal Surgery - hernia repair, Hx Herniorrhaphy, Hx Orthopedic Surgery - Immunizations Immunizations up to date: Yes Hx Diphtheria, Pertussis, Tetanus Vaccination: Yes Review of Systems - Review of Systems Notes: REVIEW OF SYSTEMS: CONSTITUTIONAL : Denies fever, chills, or sweats. Denies recent illness. Denies weight loss, recent hospitalizations. EENT: Denies visual changes, eye pain. Denies sore throat, oral lesions, difficulty swallowing. CARDIOVASCULAR: Denies chest pain. Denies palpitations. Denies lower extremity edema. RESPIRATORY: Denies cough. Denies shortness of breath, wheezing. GASTROINTESTINAL: Denies abdominal pain or distention. Denies nausea, vomiting, or diarrhea. Denies blood in vomitus, stools, or per rectum. Denies black, tarry stools. Denies constipation. GENITOURINARY: Denies difficulty urinating, painful urination, frequency, blood in urine, testicular pain or penile discharge. MUSCULOSKELETAL: Denies back or neck pain or stiffness. + joint pain or swelling. SKIN: Denies rash, lesions or sores. HEMATOLOGIC : Denies easy bruising or bleeding. LYMPHATIC: Denies swollen glands. NEUROLOGICAL: Denies confusion or altered mental status. Denies loss of consciousness. Denies dizziness or lightheadedness. Denies headache. Denies weakness or paralysis. Denies problems difficulty with ambulation, slurred speech. Denies sensory loss, numbness, or tingling. Denies seizures. PSYCHIATRIC: Denies anxiety or stress. Denies depression, suicidal ideation, or Physical Exam - Vital signs Vitals: Temp Pulse Resp BP Pulse Ox 99.4 F 85 17 129/92 H 98 08/14/18 16:54 08/14/18 16:54 08/14/18 16:54 08/14/18 16:54 08/14/18 16:54 - Notes Notes: PHYSICAL EXAMINATION: GENERAL: Well-appearing, well-nourished and in no acute distress. HEAD: Atraumatic, normocephalic. EYES: Pupils equal round and reactive to light, extraocular movements intact, sclera anicteric, conjunctiva are normal. ENT: Nares patent, oropharynx clear without exudates. Moist mucous membranes. NECK: Normal range of motion, supple without lymphadenopathy LUNGS: Breath sounds clear to auscultation bilaterally and equal. No wheezes rales or rhonchi. HEART: Regular rate and rhythm without murmurs ABDOMEN: Soft, nontender, nondistended abdomen. No guarding, no rebound. No masses appreciated. Musculoskeletal: Normal range of motion, no pitting or edema. No cyanosis. Left lower extremity with associated bruising, no swelling, no obvious deformity, DP, PT pulse intact. Full range of motion. Ambulates with steady gait. NEUROLOGICAL: Cranial nerves grossly intact. Normal speech, normal gait. Normal sensory, motor exams PSYCH: Normal mood, normal affect. SKIN: Bruising of the left lower extremity from the knee down to the ankle. Course - Re-evaluation Re-evalutation: 08/15/18 02:08 Ankle X-Ray 08/14/18 17:23 IMPRESSION: Mild soft tissue swelling. No underlying fracture. Knee X-Ray 08/14/18 17:23 IMPRESSION: NEGATIVE STUDY OF THE LEFT KNEE. NO RADIOGRAPHIC EVIDENCE OF ACUTE INJURY. Chest X-Ray 08/14/18 20:09 IMPRESSION: No acute chest finding. copyright 2011 [employer]- All Rights Reserved Temp Pulse Resp BP Pulse Ox 98.4 F 75 16 110/83 98 08/14/18 21:15 08/14/18 21:15 08/14/18 21:15 08/14/18 21:15 08/14/18 21:15 38-year-old male presents with left lower extremity bruising, swelling occurred 4 days prior to arrival. Patient states he woke to bruising on his left leg denies any known injury but states that he has been moving furniture over the last week. Vital signs reviewed and within normal limits. Patient does not appear toxic or dehydrated. He is in no acute distress. EKG interpreted by me shows patient to be in normal sinus rhythm. Imaging of the left lower extremity no evidence of fracture, dislocation. Lower extremity Dopplers negative for DVT. Miguel wrap applied to the lower extremity. Patient advised to ice, elevate and return for any worsening pain. Patient was evaluated and treated as appropriate for the patient's presenting symptoms and complaint, with consideration of any critical or life threatening conditions that may be associated with their obtained history and exam as noted above. All results were discussed with patient. Patient provided the opportunity to ask questions, and express concerns. Patient was educated on treatments based on their presumed diagnosis as noted above. At this time we will discharge the patient with return precautions and follow-up recommendations. Verbal discharge instructions given a the bedside. Medication warnings reviewed. Patient is in agreement with this plan and has verbalized understanding of return precautions. After careful consideration I feel that that patient can be safely discharged from the emergency department, they were advised to followup with a primary care physician in 2-3 days. Dictation on this chart was performed using voice recognition software and may result in unintended grammatical, spelling, syntax or errors. - Vital Signs Vital signs: Temp Pulse Resp BP Pulse Ox 98.4 F 75 16 110/83 98 08/14/18 21:15 08/14/18 21:15 08/14/18 21:15 08/14/18 21:15 08/14/18 21:15 - Diagnostic Test Radiology reviewed: Image reviewed, Reports reviewed - EKG Interpretation by Me EKG shows normal: Sinus rhythm Rate: Normal Rhythm: NSR When compared to previous EKG there are: No significant change Discharge - Discharge Clinical Impression: Superficial bruising of lower leg Qualifiers: Encounter type: initial encounter Laterality: left Qualified Code(s): S80.12XA - Contusion of left lower leg, initial encounter Condition: Good Disposition: HOME, SELF-CARE Additional Instructions: Your imaging today did not show any other of a clot or broken bone in your lower leg. Your EKG was completely normal as well as your chest x-ray. Please follow-up with your primary care physician in the next 48 hours. Forms: Elevated Blood Pressure
--- NOTE | 2018-08-14 21:00 | RADIOLOGY REPORT (SQ) ---
EXAM DESCRIPTION: XR CHEST 2 VIEWS COMPLETED DATE/TME: 08/14/2018 20:09 CLINICAL HISTORY: 38 years, Male, lump on sternum COMPARISON: None. NUMBER OF VIEWS: Two TECHNIQUE: One PA and one lateral view of the chest LIMITATIONS: None. FINDINGS: Cardiomediastinal silhouette is within normal limits in size. No lung consolidate. No pleural effusion. No pneumothorax. Osseous structures are without acute finding. Suture anchors project in the left glenohumeral joint. IMPRESSION: No acute chest finding. copyright 2010 [employer]- All Rights Reserved
[2018-08-14 21:17] VITALS: BP 110/83
--- NOTE | 2018-08-15 02:34 | RADIOLOGY REPORT (SQ) ---
EXAM DESCRIPTION: Left lower extremity venous duplex 08/15/2018 1:33 AM CDT CLINICAL HISTORY: 38 years, 38 years, left lower leg discoloration bruising COMPARISON: None TECHNIQUE: Utilizing a linear array transducer, real-time ultrasound evaluation of the left lower extremity was performed. Color Doppler imaging was used to assess vascular flow. FINDINGS: The left common femoral and proximal/mid/distal superficial femoral veins are normal in caliber and compressibility. There is normal directional flow. The left popliteal vein is normal in appearance. There is normal directional flow and normal compressibility. IMPRESSION: No evidence of left lower extremity deep venous thrombosis.
--- NOTE | 2018-08-15 07:34 | EKG REPORT ---
SEVERITY:- NORMAL ECG - SINUS RHYTHM : Confirmed by: Robbie Lomeli MD 15-Aug-2018 07:34:29
== END 2018-08-14 21:20 | disposition home or self-care (01) ==
LOC: ER 16:21
DX: S80.12XA Contusion of left lower leg, initial encounter (principal); R11.0 Nausea; X58.XXXA Exposure to other specified factors, initial encounter; Z88.0 Allergy status to penicillin
CPT/HCPCS: 93005; 99284; 93971; 73610; 71046; 73564; 93010; J3490; S0119

== ENCOUNTER 2019-12-15 02:48 | Emergency (ER) | payer BC, MEDICAID ==
--- NOTE | 2019-12-15 03:14 | ER Document Report ---
ED Cardiac - General Chief Complaint: Chest Pain Stated Complaint: CHEST PAIN Time Seen by Provider: 12/15/19 02:58 Mode of Arrival: Ambulatory Information source: Patient Notes: 39-year-old male past medical history significant for hypertension untreated presents emergency room with a sudden onset of midsternal chest pain that radiated to his back described as a stabbing patient. Started half hour prior to arrival. States he tried taking Tums and drinking milk without relief. States his took his blood pressure was 163/113 was brought in by EMS. States he was given 4 baby aspirin and nitro spray with relief of symptoms. Denies any nausea, vomiting, no diaphoresis. No previous cardiac history. TRAVEL OUTSIDE OF THE [place] IN LAST 30 DAYS: No - Related Data Allergies/Adverse Reactions: amoxicillin [From Augmentin] Allergy (Verified 12/15/19 03:00) clavulanic acid [From Augmentin] Allergy (Verified 12/15/19 03:00) Past Medical History - General Information source: Patient - Social History Smoking Status: Former Smoker Frequency of alcohol use: Rare Drug Abuse: None Family History: CAD - Mother with a quadruple bypass in her 50s. Patient has homicidal ideation: No Renal/ Medical History: Denies: Hx Peritoneal Dialysis Psychiatric Medical History: Reports: Hx Anxiety Past Surgical History: Reports: Hx Abdominal Surgery - hernia repair, Hx Herniorrhaphy, Hx Orthopedic Surgery - Immunizations Immunizations up to date: Yes Hx Diphtheria, Pertussis, Tetanus Vaccination: Yes Review of Systems - Review of Systems Constitutional: No symptoms reported EENT: No symptoms reported Cardiovascular: Chest pain. denies: Dyspnea Respiratory: No symptoms reported Gastrointestinal: No symptoms reported Musculoskeletal: No symptoms reported Skin: No symptoms reported Hematologic/Lymphatic: No symptoms reported Neurological/Psychological: No symptoms reported -: Yes All other systems reviewed and negative Physical Exam - Vital signs Vitals: Temp Resp Pulse Ox 98.1 F 14 97 12/15/19 02:55 12/15/19 02:55 12/15/19 02:55 - Notes Notes: VITAL SIGNS: Within normal limits. GENERAL: Mild acute distress, non-toxic appearance. HEAD: Normal with no signs of head trauma. EYES: PERRLA, EOMI, conjunctiva normal, no discharge. EARS: Hearing grossly intact. NOSE: Normal. THROAT: Oropharynx is normal. NECK: Normal range of motion, no tenderness, supple, no lymphadenopathy, No adenopathy, no JVD. CHEST: Clear breath sounds bilaterally. No wheezes, rales, or rhonchi. CARDIAC: Regular rate and rhythm. S1 and S2, without murmurs, gallops, or rubs. VASCULAR: No Edema. Peripheral pulses normal and equal in all extremities. ABDOMEN: Normal and soft with no tenderness, no masses or pulsatile masses. No organomegaly. Positive bowel sounds x4. No CVA tenderness noted bilaterally. GASTROINTESTINAL: Bowel sounds normal GENITOURINARY: Normal, No tenderness LYMPATHTIC: No lymphadenopathy noted. MUSCULOSKELETAL: Good range of motion of all major joints. Extremities without clubbing, cyanosis or edema. NEUROLOGICAL: Alert and oriented x 3. No focal sensory or strength deficits. Speech normal. Follows commands appropriately. PSYCHIATRIC: Normal Affect, judgement and mood. SKIN: Normal appearance with no rashes or lesions. Course - Re-evaluation Re-evalutation: 12/15/19 04:04 HEART Score: History 1 ECG 0 Age 0 Risk Factors 2 Troponin 0 Total: 3 If HEART score is = 3 AND both tronponin measurments are normal, the 30 day risk of a major adverse cardiac event (all-cause mortality, myocardia infarction or need for coronary revscularization) is < 1% (Sensitivity 100%, NPV 100%). 12/15/19 06:04 Patient is resting comfortably with decreased pain. Chest pain is reproducible on palpation to the sternal area. Patient aware that delta troponin is pending. There is no risk for acute coronary syndrome. Will give IV Toradol and reevaluate 12/15/19 07:09 Patient refused Toradol requested Tylenol. Tylenol was ordered. Delta Trop still pending. 12/15/19 07:35 Patient currently resting comfortably denies any pain. Refused any additional pain medication. Low risk for ACS. Aware of negative repeat troponins. Chest pain in a patient without evidence of cardiac or other serious etiology on workup today. I discussed with patient that, based on their age, risk factors and emergency department testing today, the likelihood that their symptoms are related to a heart attack is very low (estimated risk of heart attack or over the next 30 days of less than 1%). The patient demonstrates decision making capacity and has verbalized an understanding of these risks to me. Based on this, the patient has chosen to follow-up as an outpatient. Usual chest pain return precautions reviewed. The patient states understanding and agreement with this plan. Patient was counseled to continue with Tylenol and or Motrin as needed for pain. Outpatient follow-up with his primary care physician if not improving in 2 to 3 days. Patient was given strict return to the emergency room guidelines. Return for any new or worsening symptoms. All questions were answered. Patient verbalized understanding and agrees with plan of care. - Vital Signs Vital signs: Temp Pulse Resp BP Pulse Ox 98.1 F 79 18 109/80 96 12/15/19 03:00 12/15/19 03:00 12/15/19 06:31 12/15/19 06:31 12/15/19 06:31 - Laboratory Result Diagrams: 12/15/19 02:54 12/15/19 02:54 Laboratory results interpreted by me: 12/15/19 02:54 Sodium 136.5 L Glucose 127 H - Diagnostic Test Radiology reviewed: Reports reviewed - EKG Interpretation by Ct EKG shows normal: Sinus rhythm Additional EKG results interpreted by me: 12/15/19 03:13 EKG was interpreted by ED physician Dr. Montaño No acute STEMI Normal sinus rhythm Rate [address] wave abnormalities Unchanged from previous EKG of 08/14/2018 Discharge - Discharge Clinical Impression: Chest pain of unknown etiology Condition: Stable Disposition: HOME, SELF-CARE Instructions: Chest Pain of Unclear Cause ([facility]) Additional Instructions: Tylenol and or Motrin as needed for pain. Outpatient follow-up primary care physician if not improving in 2 to 3 days. Return to the emergency room for any new or worsening symptoms.
[2019-12-15 03:39] LABS: ABSOLUTE EOSINOPHILS # (AUTO) 0.1 10^3/uL (0.0-0.6); ABSOLUTE LYMPHOCYTES (AUTO) 2.2 10^3/uL (0.5-4.7); ABSOLUTE MONOCYTES (AUTO) 0.7 10^3/uL (0.1-1.4); ABSOLUTE NEUT (AUTO) 2.8 10^3/uL (1.7-8.2); BASOPHILS % (AUTO) 0.3 % (0-2); EOSINOPHILS % (AUTO) 2.4 % (0-6); HEMATOCRIT 39.8 % (37.9-51.0); HEMOGLOBIN 13.9 g/dL (13.5-17.0); LYMPHOCYTES % (AUTO) 37.1 % (13-45); MEAN CORPUSCULAR HEMOGLOBIN 30.4 pg (27.0-33.4); MEAN CORPUSCULAR VOLUME 87 fl (80-97); MONOCYTES % (AUTO) 11.4 % (3-13); PLATELET COUNT 266 10^3/uL (150-450); RED BLOOD COUNT 4.59 10^6/uL (4.35-5.55); RED CELL DISTRIBUTION WIDTH 13.3 % (11.5-14.0); SEGMENTED NEUTROPHILS % (AUTO) 48.8 % (42-78); TOTAL CELLS COUNTED % (AUTO) 100 %; WHITE BLOOD COUNT 5.8 10^3/uL (4.0-10.5)
[2019-12-15 03:48] LABS: ALBUMIN 4.1 g/dL (3.5-5.0); ALKALINE PHOSPHATASE 65 U/L (38-126); ANION GAP 7 (5-19); ASPARTATE AMINO TRANSFERASE 23 U/L (17-59); BILIRUBIN,DIRECT 0.2 mg/dL (0.0-0.4); BILIRUBIN,TOTAL 0.5 mg/dL (0.2-1.3); BLOOD UREA NITROGEN 14 mg/dL (7-20); CALCIUM 9.1 mg/dL (8.4-10.2); CARBON DIOXIDE 26 mmol/L (22-30); CHLORIDE 104 mmol/L (98-107); CREATINE KINASE 123 U/L (55-170); GLUCOSE 127 mg/dL (75-110); POTASSIUM 3.9 mmol/L (3.6-5.0); TOTAL PROTEIN 6.5 g/dL (6.3-8.2)
[2019-12-15 04:01] LABS: CREATINE KINASE MB 0.85 ng/mL (<4.55)
[2019-12-15 04:02] LABS: TROPONIN I < 0.012 ng/mL
--- NOTE | 2019-12-15 04:06 | RADIOLOGY REPORT (SQ) ---
CLINICAL INDICATION: chest pain. TECHNIQUE: A single portable AP view was obtained of the chest at 0349 hours. COMPARISON: None available. FINDINGS: The cardiomediastinal silhouette is top normal. The lungs are grossly clear. No evidence of effusion or pneumothorax. Postsurgical change left shoulder. IMPRESSION: No evidence of active intrathoracic disease.
[2019-12-15] MEDS: KETOROLAC TROMETHAMINE INJ/PF 30 MG/1 ML SDV IV ONE ×2 (06:24→06:26)
[2019-12-15] MEDS ORDERED: ACETAMINOPHEN 325 MG TABLET PO ONE (07:08)
[2019-12-15 07:45] VITALS: BP 115/85
--- NOTE | 2019-12-16 02:34 | EKG REPORT ---
SEVERITY:- NORMAL ECG - SINUS RHYTHM : Confirmed by: Dominic Zuluaga MD 16-Dec-2019 02:33:21
== END 2019-12-15 07:45 | disposition home or self-care (01) ==
LOC: ER 02:48
DX: R07.9 Chest pain, unspecified (principal); I10 Essential (primary) hypertension; Z87.891 Personal history of nicotine dependence; Z88.0 Allergy status to penicillin; Z82.49 Family history of ischemic heart disease and other diseases of the circulatory system
CPT/HCPCS: 36415; 71045; 80053; 82550; 82553; 84484; 85025; 93005; 93010; 99285; J1885